=== PATIENT | male | born 1990 | race Caucasian/White ===

== ENCOUNTER 2017-05-03 22:45 | Emergency (ER) | payer SELFPAY ==
[2017-05-03] MEDS ORDERED: IBUPROFEN 600 MG TABLET PO ONE (23:21)
--- NOTE | 2017-05-03 23:27 | Emergency Department Record ---
History of Present Illness - General Chief complaint: Pain Stated complaint: PAIN IN RT SIDE AND BACK Time Seen by Provider: 05/03/17 23:13 Source: Patient Mode of Arrival: Ambulatory Limitations: No limitations - History of Present Illness Initial comments: pt has pain in r chest w movement. he also has productive brown cough. he denies injury or new activity Complaint: Other Onset/Timin -: Week(s) Location: Right, Other History of Same: No Severity scale (1-10): 1 Quality: Sharp Improves with: Rest Worsens with: Exertion - Related Data Home Medications Medication Instructions Recorded Confirmed Last Taken Dextroamphetamine/Amphetamine 5 mg PO QPM 05/03/17 05/03/17 Unknown [Adderall 5 mg Tablet] Dextroamphetamine/Amphetamine 20 mg PO DAILY 05/03/17 05/03/17 Unknown [Adderall Xr 20 mg Capsule] Previous Rx's Medication Instructions Recorded Azithromycin [Zithromax] 250 mg PO DAILY #4 tab 05/04/17 Allergies Allergy/AdvReac Type Severity Reaction Status Date / Time No Known Drug Allergies Allergy Verified 05/03/17 22:55 Travel Screening - Travel/Exposure Within Last 30 Days Have you traveled within the last 30 days?: No - Travel Symptoms Symptom Screening: None Review of Systems Reviewed: No additional complaints except as noted below Constitutional: Reports: As per HPI. Denies: Chills, Fever, Malaise, Night sweats, Weakness, Weight change Eyes: Reports: As per HPI. Denies: Eye discharge, Eye pain, Photophobia, Vision change ENT: Reports: As per HPI. Denies: Congestion, Dental pain, Ear pain, Epistaxis , Hearing loss, Throat pain Respiratory: Reports: As per HPI, Cough. Denies: Dyspnea, Hemoptysis, Stridor, Wheezes Cardiovascular: Reports: As per HPI. Denies: Arrhythmia, Chest pain, Dyspnea on exertion, Edema, Murmurs, Orthopnea, Palpitations, Paroxysmal nocturnal dyspnea, Rheumatic Fever, Syncope Endocrine: Reports: As per HPI. Denies: Fatigue, Heat or cold intolerance, Polydipsia, Polyuria Gastrointestinal: Reports: As per HPI. Denies: Abdominal pain, Constipation, Diarrhea, Hematemesis, Hematochezia, Melena, Nausea, Vomiting Genitourinary: Reports: As per HPI. Denies: Dysuria, Frequency, Hematuria, Incontinence, Retention, Testicular pain, Testicular mass, Urgency Musculoskeletal: Reports: As per HPI. Denies: Arthralgia, Back pain, Gout, Joint swelling, Myalgia, Neck pain Skin: Reports: As per HPI. Denies: Bruising, Change in color, Change in hair/ nails, Lesions, Pruritus, Rash Neurological: Reports: As per HPI. Denies: Abnormal gait, Confusion, Headache, Numbness, Paresthesias, Seizure, Tingling, Tremors, Vertigo, Weakness Psychiatric: Reports: As per HPI. Denies: Anxiety, Auditory hallucinations, Depression, Homicidal thoughts, Suicidal thoughts, Visual hallucinations Hematological/Lymphatic: Reports: As per HPI. Denies: Anemia, Blood Clots, Easy bleeding, Easy bruising, Swollen glands Past Medical History - SOCIAL HISTORY Smoking Status: Current every day smoker - RESPIRATORY Hx Respiratory Disorders: No - CARDIOVASCULAR Hx Cardio Disorders: No - NEURO Hx Neuro Disorders: No - GI Hx GI Disorders: No - Hx Genitourinary Disorders: No - ENDOCRINE Hx Endocrine Disorders: No - MUSCULOSKELETAL Hx Musculoskeletal Disorders: No - PSYCH Hx Psych Problems: Yes Comment:: ADHD - HEMATOLOGY/ONCOLOGY Hx Hematology/Oncology Disorders: No Family Medical History Any Significant Family History?: Yes Hx Diabetes: Father, Grandparents Physical Exam - General General Appearance: Alert, Oriented x3, Cooperative, Mild distress - Head Head exam: Normal inspection - Eye Eye exam: Normal appearance, PERRL, EOMI Pupils: Normal accommodation - ENT ENT exam: Normal exam, Mucous membranes moist, Normal external ear exam, Normal orophraynx Ear exam: Normal external inspection. negative: External canal tenderness Nasal Exam: Normal inspection. negative: Discharge, Sinus tenderness Mouth exam: Normal external inspection, Tongue normal Teeth exam: Normal inspection. negative: Dental caries Throat exam: Normal inspection. negative: Tonsillar erythema, Tonsillar exudate - Neck Neck exam: Normal inspection, Full ROM. negative: Tenderness - Respiratory Respiratory exam: Normal lung sounds bilaterally, Chest wall tenderness. negative: Respiratory distress - Cardiovascular Cardiovascular Exam: Regular rate, Normal rhythm, Normal heart sounds - GI/Abdominal GI/Abdominal exam: Soft, Normal bowel sounds. negative: Tenderness - Rectal Rectal exam: Deferred - exam: Deferred - Extremities Extremities exam: Normal inspection, Full ROM, Normal capillary refill. negative: Tenderness - Back Back exam: Reports: Normal inspection, Full ROM. Denies: Muscle spasm, Rash noted, Tenderness - Neurological Neurological exam: Alert, CN II-XII intact, Normal gait, Oriented X3 - Psychiatric Psychiatric exam: Normal affect, Normal mood - Skin Skin exam: Dry, Intact, Normal color, Warm Course Vital Signs 05/03/17 22:58 Temperature 98.1 F Pulse Rate 88 Respiratory 16 Rate Blood Pressure 144/101 Pulse Ox 100 Disposition Disposition: Discharge Clinical Impression: Bronchitis, Chest wall pain Disposition: Home, Self-Care Condition: (1) Good Instructions: Acute Bronchitis (ED), Chest Wall Pain (ED) Additional Instructions: follow up with family doctor. return sooner if worse Prescriptions: Azithromycin [Zithromax] 250 mg PO DAILY #4 tab Forms: Patient Portal Access Quality - Quality Measures Quality Measures: N/A - Blood Pressure Screening Does Patient Have Any of the Following: No Blood Pressure Classification: Hypertensive Reading Systolic Measurement: 144 Diastolic Measurement: 101 Screening for High Blood Pressure: < First Hypertensive BP, F/U Documented > [ [id number]] First Hypertensive Follow-up Interventions: Follow-up with rescreen GT 1 day and LT 4 weeks.
[2017-05-04] MEDS ORDERED: AZITHROMYCIN 500 MG TABLET PO ONE (00:05)
--- NOTE | 2017-05-05 07:45 | RADIOLOGY REPORT ---
EXAM: CHEST, TWO VIEWS HISTORY: ANTERIOR TO POSTERIOR RIGHT UPPER CHEST PAIN FOR TWO WEEKS. NO KNOWN PRIORS. TECHNIQUE: Two views of the chest were obtained. Comparison: None. FINDINGS: The cardiomediastinal silhouette is unremarkable. The lungs and pleural spaces are clear. Incidental note is made of a right azygos lobe/fissure. IMPRESSION: NO ACUTE CARDIOPULMONARY ABNORMALITY. JOB NUMBER: [id number] MTDD
== END 2017-05-04 00:29 | disposition home or self-care (01) ==
LOC: ER 22:45
DX: J20.9 Acute bronchitis, unspecified (principal); R07.89 Other chest pain; F17.210 Nicotine dependence, cigarettes, uncomplicated
CPT/HCPCS: 71046; 99283